=== PATIENT | female | born 1990 | race Caucasian/White ===

== ENCOUNTER → 2018-12-10 | Outpatient (CLI) | payer BC ==
--- NOTE | 2018-12-10 14:09 | KCIC ---
Right breast ultrasound: Reason for examination: Right breast lump. Patient no longer feels the lump today. Ultrasound examination of the right breast was performed in the area of clinical concern and the axilla. No discrete cystic or solid nodule or architectural distortion is seen. No abnormal appearing lymph nodes are seen in the axilla. IMPRESSION: No focal abnormality evident in the right breast. Recommend clinical follow-up. BI-RADS Category 2: Benign. "Our facility is accredited by the [employer] Mammography [employer]." This patient's information has been entered into a reminder system for the patient to be notified with the results of her examination and a target date for the next mammogram. Electronically signed by: Danette Walker MD (12/10/2018 2:06 PM) [id number]
== END | disposition home or self-care (01) ==
LOC: KCIC US 13:25
PROVIDERS: ATTEND Family Medicine
DX: N63.10 Unspecified lump in the right breast, unspecified quadrant (principal)
CPT/HCPCS: 76641